=== PATIENT | male | born 1950 | race Hispanic/Latino ===

== ENCOUNTER 2020-06-10 13:30 | Emergency (ER) | payer MEDICARE, OTHER ==
[~2020-06-10 13:30] MED LIST: ESOM40CA PO; HYDR-4068 PO
[2020-06-10] MEDS ORDERED: ONDANSETRON 4MG INJ ONE (13:43)
[2020-06-10] MEDS ORDERED: KETOROLAC 30MG VIAL (30MG/ML) ONE (13:44)
[2020-06-10] MEDS ORDERED: 0.9%NACL 1000ML 1,000 ML IV ONE (13:45)
[2020-06-10 14:04] LABS: BASOPHILS % (AUTO) 0.8 % (0.0-5.0); HEMATOCRIT 44.9 % (42-54); MEAN CORPUSCULAR HGB CONC 33.6 g/dL (32.0-36.0); MEAN CORPUSCULAR VOLUME 92.2 fL (79-99); NEUTROPHILS % (AUTO) 54.8 % (40.0-77.0); PLATELET COUNT (AUTO) 207 K/uL (130-400); RED BLOOD CELL COUNT(AUTO) 4.87 MIL/uL (4.50-6.20); RED CELL DISTRIBUTION WIDTH 12.9 % (11.0-15.5); WHITE BLOOD COUNT (AUTO) 8.4 K/uL (4.8-10.8)
[2020-06-10 14:13] LABS: APPEARANCE,URINE Cloudy (CLEAR); BILIRUBIN,URINE Negative (NEGATIVE); COLOR,URINE Dark Yellow (YELLOW); GLUCOSE, URINE (UA) Negative (NEGATIVE); KETONES,URINE Trace mg/dL (NEGATIVE); LEUKOCYTE ESTERASE ,URINE Small (NEGATIVE); NITRATE,URINE Negative (NEGATIVE); OCCULT BLOOD,URINE Large (NEGATIVE); PROTEIN,URINE POS 1+ mg/dL (NEGATIVE)
[2020-06-10 14:17] LABS: ALANINE AMINOTRANSFERASE 26 U/L (12-78); ALBUMIN 4.1 g/dL (3.5-5.0); ASPARTATE AMINOTRANSFERASE 20 U/L (10-37); BILIRUBIN,TOTAL 0.7 mg/dL (0.2-1.0); CARBON DIOXIDE 30 mmol/L (21-32); CHLORIDE 106 mmol/L (101-111); GLOMERULAR FILTR. RATE CALC 79 mL/min (>60); GLUCOSE,RANDOM 117 mg/dL (70-105); POTASSIUM 3.8 mmol/L (3.5-5.1); SODIUM SERUM 143 mmol/L (136-145); TOTAL PROTEIN, SERUM 7.5 g/dL (6.0-8.3); UREA NITROGEN, BLOOD 14 mg/dL (7-18)
[2020-06-10 14:25] LABS: LIPASE < 50 U/L (114-286)
[2020-06-10 14:32] LABS: BACTERIA,URINE Moderate /HPF (None Seen); MUCUS,URINE Few LPF (None Seen); RBC,URINE >100 /HPF (0-1); SQUAMOUS EPITHELIAL CELL,UR 0-2 /HPF (0-2)
[2020-06-10] MEDS ORDERED: TAMSULOSIN HCL 0.4 MG CAP.ER.24H ONE (14:35)
== END 2020-06-10 15:29 | disposition home or self-care (01) ==
LOC: EDH 13:30
DX: N20.0 Calculus of kidney (principal); R31.9 Hematuria, unspecified; Z86.73 Personal history of transient ischemic attack (TIA), and cerebral infarction without residual deficits
CPT/HCPCS: 36415; 74176; 80053; 81001; 83690; 84484; 85025; 87088; 96361; 96374; 96375; 99284; J1885; J2405; J7030

== ENCOUNTER → 2023-06-11 | Outpatient (CLI) | payer OTHER | END | disposition home or self-care (01) | LOC: OIH 14:32 | PROVIDERS: ATTEND Internal Medicine Cardiovascular Disease | DX: Z13.6 Encounter for screening for cardiovascular disorders (principal) | CPT/HCPCS: 75571 ==

== ENCOUNTER → 2023-06-28 | Outpatient (CLI) | payer MEDICARE, OTHER | END | disposition home or self-care (01) | LOC: SHCH 10:03 | PROVIDERS: ATTEND Internal Medicine Cardiovascular Disease | DX: I65.23 Occlusion and stenosis of bilateral carotid arteries (principal); R09.89 Other specified symptoms and signs involving the circulatory and respiratory systems | CPT/HCPCS: 93880 ==

== ENCOUNTER 2023-07-17 06:49 | Day surgery (SDC) | payer MEDICARE, OTHER ==
[2023-07-15 10:31] VITALS: BP 120/61; PULSE 69; RESP 16
[2023-07-15 10:34] LABS: APPEARANCE,URINE CLEAR (CLEAR); BILIRUBIN,URINE NEGATIVE (NEGATIVE); COLOR,URINE YELLOW (YELLOW); GLUCOSE, URINE (UA) NEGATIVE (NEGATIVE); KETONES,URINE NEGATIVE (NEGATIVE); LEUKOCYTE ESTERASE ,URINE NEGATIVE Leu/uL (NEGATIVE); NITRATE,URINE NEGATIVE (NEGATIVE); OCCULT BLOOD,URINE NEGATIVE (NEGATIVE); PROTEIN,URINE NEGATIVE (NEGATIVE); UROBILINOGEN,URINE 0.2 mg/dL (0.2-1.0)
[2023-07-15 10:34] LABS: BASOPHILS # (AUTO) 0.05 K/uL (0.00-0.20); BASOPHILS % (AUTO) 0.7 % (0.0-5.0); EOSINOPHILS # (AUTO) 0.05 K/uL (0.00-0.70); EOSINOPHILS % (AUTO) 0.7 % (0.0-8.0); HEMATOCRIT 40.5 % (42-54); IMMATURE GRANULOCYTE ABSOLUTE 0.01 K/uL (0-1); LYMPHOCYTES # (AUTO) 1.7 K/uL (1.0-4.8); LYMPHOCYTES % (AUTO) 23.5 % (21.0-51.0); MEAN CORPUSCULAR HEMOGLOBIN 30.7 pg (27.0-33.0); MEAN CORPUSCULAR HGB CONC 33.3 g/dL (32.0-36.0); MONOCYTES # (AUTO) 0.6 K/uL (0.1-1.0); MONOCYTES % (AUTO) 8.8 % (3.0-13.0); NEUTROPHILS # (AUTO) 4.7 K/uL (1.8-7.7); NEUTROPHILS % (AUTO) 66.2 % (40.0-77.0); PLATELET COUNT (AUTO) 178 K/uL (130-400); RED CELL DISTRIBUTION WIDTH 12.7 % (11.0-15.5); WHITE BLOOD COUNT (AUTO) 7.1 K/uL (4.8-10.8)
[2023-07-15 10:37] LABS: ADD UA MICROSCOPIC NO
[2023-07-15 10:42] LABS: INR 0.97 (0.85-1.15); PROTHROMBIN TIME 11.5 SEC (9.6-11.6)
[2023-07-15 10:43] LABS: PARTIAL THROMBOPLASTIN TIME 27.4 SEC (26.3-35.5)
[2023-07-15 10:44] LABS: POTASSIUM 4.6 mmol/L (3.5-5.1)
[2023-07-15 10:52] LABS: B-TYPE NATRIURETIC PEPTIDE 97 pg/mL (0-100)
[2023-07-17] VITALS (10 sets, daily range): BP systolic 116–142; BP diastolic 52–108; PULSE 72–92; RESP 9–20
[~2023-07-17] VITALS: Ht 172.7 cm; Wt 71.4 kg
[~2023-07-17 06:49] MED LIST changes: +AEC81 PO; +CLOP75TA32 PO; -ESOM40CA PO; +EZET10TA48 PO; +LISI20TA24 PO; +MELO-108 PO; +METF-444 PO; +RABE20TA30 PO; +ROPI0.2535 PO
[2023-07-17] MEDS: 0.9%NACL 1000ML 1,000 ML IV ONE (07:33)
[2023-07-17] MEDS ORDERED: IOHEXOL 350 MG/ML 100ML INFUS..BTL IV ONE (09:27)
[2023-07-17] MEDS ORDERED: LIDOCAINE HCL 400MG/20ML VIAL ONE (09:27)
[2023-07-17] MEDS ORDERED: MEPERIDINE-PF 25 MG/ML SYG ONE ×2 (09:27→10:15)
[2023-07-17] MEDS ORDERED: MIDAZOLAM HCL 1 MG/ML 2ML VIAL ONE ×2 (09:27→10:15)
[2023-07-17] MEDS ORDERED: IOHEXOL-350 50ML VIAL IV ONE (09:27)
[2023-07-17] MEDS ORDERED: HEPARIN 10,000 UNIT/10ML (1,000 UNIT/ML) VIAL ONE (09:27)
[2023-07-17] MEDS ORDERED: SODIUM BICARB 50MEQ 50ML VIAL 50 ML ONE (09:27)
[2023-07-17] MEDS ORDERED: NITROGLYCERIN 50MG VIAL ONE (09:29)
[2023-07-17] MEDS ORDERED: NICARDIPINE 25MG INJ IV ONE (10:04)
[2023-07-17] MEDS: 0.9%NACL 1000ML 1,000 ML IV SCH (10:48)
[2023-07-17] MEDS ORDERED: DEXTROSE 50%-WATER 50 ML DISP.SYRIN IV PRN (11:00)
[2023-07-17] MEDS ORDERED: INSULIN HUMULIN R 100 UNIT/ML 3ML SQ SCH (11:30)
== END 2023-07-17 15:00 | disposition home or self-care (01) ==
LOC: DAH 06:49
PROVIDERS: ATTEND Internal Medicine Cardiovascular Disease
DX: R93.1 Abnormal findings on diagnostic imaging of heart and coronary circulation (principal); I25.10 Atherosclerotic heart disease of native coronary artery without angina pectoris; I10 Essential (primary) hypertension; E78.5 Hyperlipidemia, unspecified; E11.9 Type 2 diabetes mellitus without complications; M19.90 Unspecified osteoarthritis, unspecified site; I48.0 Paroxysmal atrial fibrillation; K21.9 Gastro-esophageal reflux disease without esophagitis; M79.10 Myalgia, unspecified site; Z86.73 Personal history of transient ischemic attack (TIA), and cerebral infarction without residual deficits; Z82.49 Family history of ischemic heart disease and other diseases of the circulatory system; Z83.3 Family history of diabetes mellitus; Z82.3 Family history of stroke; Z87.891 Personal history of nicotine dependence; Z79.84 Long term (current) use of oral hypoglycemic drugs; Z79.899 Other long term (current) drug therapy
CPT/HCPCS: 80048; 83880; 85025; 85610; 85730; 81003; 36415; 71045; 93005; 93458; 82948; 93306; 93356; C1769; A4649; C1894; Q9965; J3490 ×4; J7030; J1644 ×2; J2250 ×2; J2175 ×2; Q9967; A4215; A4222; A4221; A4663; A4216; A4606; A4223 ×3; 99156; 99157

== ENCOUNTER 2023-08-29 12:11 | Emergency (ER) | payer MEDICARE, OTHER ==
[~2023-08-29] VITALS: Ht 172.7 cm; Wt 68.0 kg
[~2023-08-29 12:11] MED LIST changes: -CLOP75TA32 PO; +METO50TA9 PO
[2023-08-29] MEDS ORDERED: METOCLOPRAMIDE 10 MG/2 ML VIAL IVP ONE (13:00)
[2023-08-29] MEDS ORDERED: ONDANSETRON 4MG INJ IVP ONE (13:00)
[2023-08-29] MEDS ORDERED: MORPHINE 2 MG SYG IVP ONE (13:00)
[2023-08-29] MEDS ORDERED: 0.9%NACL 1000ML 1,000 ML IV ONE (13:00)
[2023-08-29] MEDS: LACTULOSE 20 GM/30 ML UDCUP PO ONE (13:14)
[2023-08-29] MEDS: BISACODYL 10 MG SUPP.RECT RC ONE (13:15)
[2023-08-29 13:54] VITALS: BP 146/73; PULSE 87; RESP 18; O2SAT 98
== END 2023-08-29 14:23 | disposition home or self-care (01) ==
LOC: EDH 12:11
DX: K59.03 Drug induced constipation (principal); T40.2X5A Adverse effect of other opioids, initial encounter; E11.9 Type 2 diabetes mellitus without complications; I11.9 Hypertensive heart disease without heart failure; E78.00 Pure hypercholesterolemia, unspecified; Z79.1 Long term (current) use of non-steroidal anti-inflammatories (NSAID); Z79.82 Long term (current) use of aspirin; Z79.84 Long term (current) use of oral hypoglycemic drugs; Z79.899 Other long term (current) drug therapy; Z86.73 Personal history of transient ischemic attack (TIA), and cerebral infarction without residual deficits; Z95.1 Presence of aortocoronary bypass graft; Y92.89 Other specified places as the place of occurrence of the external cause
CPT/HCPCS: 74018

== ENCOUNTER 2023-09-09 08:17 | Emergency (ER) | payer MEDICARE, OTHER ==
[~2023-09-09] VITALS: Ht 170.2 cm; Wt 67.1 kg
[2023-09-09] MEDS: MAGNESIUM CITRATE 296 ML SOLUTION PO ONE (10:04)
[2023-09-09] MEDS: GLYCERIN ADULT SUPP.RECT RC SCH (10:04)
[2023-09-09] MEDS ORDERED: POLY17PO4 PO (11:09)
[2023-09-09 11:39] VITALS: BP 154/88; PULSE 70; RESP 17; O2SAT 100
== END 2023-09-09 11:39 | disposition home or self-care (01) ==
LOC: EDH 08:17
DX: K59.03 Drug induced constipation (principal); I10 Essential (primary) hypertension; E11.9 Type 2 diabetes mellitus without complications; E78.00 Pure hypercholesterolemia, unspecified; Z79.82 Long term (current) use of aspirin; Z79.84 Long term (current) use of oral hypoglycemic drugs; Z79.899 Other long term (current) drug therapy; Z98.890 Other specified postprocedural states
CPT/HCPCS: 71045; 74021

== ENCOUNTER → 2024-05-27 | Outpatient (CLI) | payer OTHER ==
[~2024-05-27] MED LIST changes: +CLOP75TA32 PO; -EZET10TA48 PO; -HYDR-4068 PO; +ISOS30TA92 PO; -LISI20TA24 PO; +METO-409 PO; -METO50TA9 PO; +REGADENOSON 0.4 MG/5 ML PF SYG IVP ONE; -ROPI0.2535 PO; +ROSU10TA72 PO
[2024-05-27] MEDS: REGADENOSON 0.4 MG/5 ML PF SYG IVP ONE (15:12)
--- NOTE | 2024-05-31 07:28 | HMCSR ---
APPROVED REPORT Height: 5 ft 8in Weight: 158 lbs TEST INDICATIONS CAD The imaging protocol used to acquire images was Rest Tc-99m/stress Tc-99m 1 day Consent: The procedure was explained and understood by the patient. Informerd consent was witnessed Diego Stephens RN First, low dose rest was performed then high dose stress. RESTING DATA: The resting ekg shows: NSR Rest SPECT myocardial perfusion imaging was performed in supine position 65 minutes following the int ravenous injection of 10.4 mCi of Tc-99 Sestamibi. Time of rest injection: 08:55: Date: 05/27/2024 Time of rest imagin:00: Date: 05/27/2024 PHARMACOLOGIC STRESS: Pharmacologic stress test was performed by injecting regadenoson 0.4 mg IV push followed by the intra venous injection of 32.7 mCi of Tc-99 Sestamibi. Time of stress injection: 10:47: Date: 05/27/2024 Time of stress imagin:58: Date: 05/27/2024 Heart Rate at time of stress injection: 73 bpm. Gated Stress SPECT was performed 239 minutes after stress injection. The images were gated to evaluate regional wall motion and calculate left ventricular ejection fracti on. STRESS DETAILS Reason for Termination: Infusion complete Stress Symptoms: Headache Max HR Achieved: 100 bpm % of APMHR Achieved: 68 Max Blood Pressure: 167/85 mmHg Stress ECG: NSR LEFT VENTRICLE Size: The left ventricular size is normal. Systolic Function:The left ventricular systolic function is mildly decreased. Wall Motion: Apical hypokinesis. The left ventricular ejection fraction was calculated to be 54%.TID = . LV PERFUSION Fixed apical defect. Fixed inferior wall thinning. Reversible anterior wall defect. Conclusion The left ventricular size is normal. The left ventricular systolic function is mildly decreased. Apical hypokinesis. Fixed apical defect. Fixed inferior wall thinning. Reversible anterior wall defect. The left ventricular ejection fraction was calculated to be 54%.
== END | disposition home or self-care (01) ==
LOC: SHCH 08:22
PROVIDERS: ATTEND Internal Medicine Cardiovascular Disease
DX: I25.10 Atherosclerotic heart disease of native coronary artery without angina pectoris (principal)
CPT/HCPCS: 78452; 93017; A9500 ×2; J2785 ×2

== ENCOUNTER 2024-08-24 12:03 | Emergency (ER) | payer OTHER, MEDICARE ==
[~2024-08-24] VITALS: Ht 172.7 cm; Wt 68.0 kg
[~2024-08-24 12:03] MED LIST changes: +HYDR-4068 PO; -MELO-108 PO; -RABE20TA30 PO; +RABE20TA31 PO; -REGADENOSON 0.4 MG/5 ML PF SYG IVP ONE; -ROSU10TA72 PO; +ROSUVASTATIN PO
--- NOTE | 2024-08-24 12:10 | ERN ---
ED Note History of Present Illness Stated Complaint: REFFERED BY / PB SAMUEL ON RT ANKLE Chief Complaint: Lower Extremity Pain/Injury Time Seen by MD: 12:04 Dictation: PATIENT IS A 73-YEAR-OLD MALE COMING IN FROM HIS PRIMARY CARE DOCTOR'S OFFICE WITH COMPLAINTS OF PAIN MILD SWELLING TO THE POSTERIOR LEFT CALF HE HAS HAD FOR SEVERAL DAYS NO FEVER NO CHILLS NO SHORTNESS A BREATH. NO NAUSEA VOMITING NO TRAUMA. NO HISTORY OF CHF. DISTAL NEUROVASCULAR CMS INTACT TO LEFT LEG Allergies: Coded Allergies: No Known Drug Allergies (Unverified Allergy, Unknown, 12/22/14) Home Meds Active Scripts Isosorbide Mononitrate (Isosorbide Mononitrate ER) 30 Mg Tab.er.24h, 1 TAB PO DAILY for 30 Days, #90 TAB 1 Refill Prov:MARIN MARTINEZP 05/01/24 Metoprolol Succinate (Metoprolol Succinate) 100 Mg Tab.er.24h, 1 TAB PO BID for 30 Days, #30 TAB 0 Refills Prov:MARIN MARTINEZP 05/01/24 Reported Medications Hydrocodone/Acetaminophen (Hydrocodon-Acetaminophn 10-325) 10 Mg-325 Mg Tablet, 1 EACH PO AD PRN for RESTLESS LEGS, TAB 07/21/24 [Rosuvastatin] No Conflict Check, 20 MG PO HS 07/21/24 Clopidogrel Bisulfate (Clopidogrel) 75 Mg Tablet, 75 MG PO DAILY, TAB 04/23/24 Rabeprazole Sodium (Rabeprazole Sodium) 20 Mg Tablet.dr, 20 MG PO DAILY, TAB 07/16/23 Aspirin (ASPIRIN 81 MG ECTAB) 81 Mg Ectab, 81 MG PO DAILY, TAB.EC 07/16/23 Metformin HCl (Metformin HCl) 500 Mg Tablet, 500 MG PO DAILY, TAB 07/16/23 Past Medical History Past Medical History: Diabetes-Type II, High Cholesterol, Heart Disease, Hypertension, Other Additional Past Medical Hx: BLADDER INFECTIONS Surgical History: CABG, Other Surgical History Other: CARDIAC STENTS RN Note Reviewed/Agreed w/PFSH: Yes Review of System Dictation CONSTITUTIONAL: NEGATIVE EXCEPT FOR HPI HEAD/FACE: NEGATIVE EXCEPT FOR HPI EENT: NEGATIVE EXCEPT FOR HPI RESPIRATORY: NEGATIVE EXCEPT FOR HPI GASTROINTESTINAL/ABDOMINAL: NEGATIVE EXCEPT FOR HPI GENITOURINARY: NEGATIVE EXCEPT FOR HPI MUSCULOSKELETAL: NEGATIVE EXCEPT FOR HPI LEFT POSTERIOR CALF SWELLING TENDERNESS INTEGUMENTARY: NEGATIVE EXCEPT FOR HPI NEUROLOGICAL/PSYCH: NEGATIVE EXCEPT FOR HPI HEMATOLOGIC/LYMPHATIC: NEGATIVE EXCEPT FOR HPI ALL SYSTEMS NEGATIVE, EXCEPT NOTED ABOVE. 13 POINT REVIEW OF SYSTEMS ASSESSED AND ALL NEGATIVE EXCEPT FOR ABOVE. Initial Vital Sign VS Vital Signs Date Time Temp Pulse Resp B/P (MAP) Pulse Ox O2 Delivery O2 Flow Rate FiO2 08/24/24 12:06 98.1 71 18 15/73 98 Room Air 0 Physical Exam Dictation VITAL SIGNS REVIEWED GENERAL APPEARANCE: ALERT, ORIENTED X 3, NO ACUTE DISTRESS, WELL DEVELOPED, NOURISHED. 0/10 PAIN HEAD AND FACE: NON-TRAUMATIC. EYES: PERRL, PINK CONJUNCTIVAS, EYELID NO TRAUMA, ANTERIOR CHAMBER WITH ARCUS SENILIS. EARS: PINNAS INTACT AND NO SIGNS OF TRAUMA OR ERYTHEMA EAR CANALS CLEAR AND NO DISCHARGE TM NO ERYTHEMA NOSE: NO DISCHARGE, NO BLEEDING. OROPHARYNX: MOUTH NORMAL, TONGUE PINK, PHARYNX CLEAR,NO ERYTHEMA, TONSILS NO EXUDATES, NO ABSCESSES NOTED, MUCOUS MEMBRANE MOIST NECK: SUPPLE, NON-TENDER, NO THYROMEGALY, NO MASSES, NO JVD, NO BRUITS BREAST:DEFERRED CHEST:NO TENDERNESS, NO CREPITUS, NO PARADOXICAL MOVEMENT, NO RETRACTIONS LUNGS:CLEAR, WELL-VENTILATED, SYMMETRIC, NO RALES, NO WHEEZING, NO RHONCHI, NO STRIDOR, GOOD BREATH SOUNDS BILATERALLY HEART: REGULAR RATE, REGULAR RHYTHM, NO MURMUR, NO GALLOPS VASCULAR: NO PERIPHERAL EDEMA, ABDOMEN: SOFT, POSITIVE BOWEL SOUNDS, NONDISTENDED, NO GUARDING, NONTENDER, NO REBOUND, NO MASSES NO HEPATOMEGALY, NO SPLENOMEGALY, NO 'S SIGN, NO HERNIAS. RECTAL: DEFERRED GENITAL: DEFERRED NEUROLOGICAL: NORMAL SPEECH, MOTOR FUNCTION INTACT, SENSORY FUNCTION INTACT MUSCULOSKELETAL: NECK NONTENDER, FULL RANGE OF MOTION, BACK NONTENDER, FULL RANGE OF MOTION, EXTREMITIES MILD POSTERIOR LEFT CALF SWELLING TENDERNESS., FULL RANGE OF MOTION NO ERYTHEMA DISTAL NEUROVASCULAR CMS INTACT. SKIN: COLOR PINK, DRY, NO TURGOR, NO RASH, NO LACERATIONS, NO ABRASIONS, NO CONTUSIONS. LYMPHATIC: DEFERRED Results (Laboratory/Radiology) Laboratory/Radiology Laboratory Tests Test 08/24/24 12:21 White Blood Count 7.4 K/uL (4.8-10.8) Red Blood Count 4.21 MIL/uL (4.50-6.20) L Hemoglobin 12.1 g/dL (14.0-18.0) L Hematocrit 38.2 % (42-54) L Mean Corpuscular Volume 90.7 fL (79-99) Mean Corpuscular Hemoglobin 28.7 pg (27.0-33.0) Mean Corpuscular Hemoglobin Concent 31.7 g/dL (32.0-36.0) L Red Cell Distribution Width 14.4 % (11.0-15.5) Platelet Count 198 K/uL (130-400) Mean Platelet Volume 10.7 fL (7.5-10.5) H Immature Granulocyte % (Auto) 0.4 % (0-1) Neutrophils (%) (Auto) 64.4 % (40.0-77.0) Lymphocytes (%) (Auto) 21.6 % (21.0-51.0) Monocytes (%) (Auto) 9.9 % (3.0-13.0) Eosinophils (%) (Auto) 3.0 % (0.0-8.0) Basophils (%) (Auto) 0.7 % (0.0-5.0) Neutrophils # (Auto) 4.8 K/uL (1.8-7.7) Lymphocytes # (Auto) 1.6 K/uL (1.0-4.8) Monocytes # (Auto) 0.7 K/uL (0.1-1.0) Eosinophils # (Auto) 0.22 K/uL (0.00-0.70) Basophils # (Auto) 0.05 K/uL (0.00-0.20) Absolute Immature Granulocyte (auto 0.03 K/uL (0-1) Nucleated Red Blood Cells 0.0 % (0.0-0.19) Sodium Level 138 mmol/L (136-145) Potassium Level 4.6 mmol/L (3.5-5.1) Chloride Level 103 mmol/L (101-111) Carbon Dioxide Level 30 mmol/L (21-32) Blood Urea Nitrogen 23 mg/dL (7-18) H Creatinine 0.8 mg/dL (0.5-1.3) Glomerular Filtration Rate Calc 93 mL/min (>90) Random Glucose 97 mg/dL (70-105) Total Calcium 9.5 mg/dL (8.5-10.1) 1333/ULTRASOUND DOPPLER LEFT LEG NEGATIVE FOR DVT Labs Reviewed?: Yes ED Course ED Course Orders Procedure Category Date Status Time Us Venous Doppler US 08/24/24 Resulted Unilateral 12: Cbc With Differential LAB 08/24/24 Complete 12:07 Basic Metabolic Panel LAB 08/24/24 Complete 12: Vital Signs Date Time Temp Pulse Resp B/P (MAP) Pulse Ox O2 Delivery O2 Flow Rate FiO2 08/24/24 12:06 98.1 71 18 15/73 98 Room Air 0 Medical Decision Making [facility] MEDICAL DISCHARGE MAKING BASED ON BASIC LABS AND ULTRASOUND DOPPLER LEFT LEG TO RULE OUT DVT. LABS UNREMARKABLE ULTRASOUND DOPPLER NEGATIVE PATIENT WAS HAVING SOME MUSCLE PAIN WITH TRANSDUCER. DISCHARGED HOME TO FOLLOW UP WITH HIS PRIMARY CARE DOCTOR DX & DISP Disposition: Discharge Departure Impression: Primary Impression: Left leg pain Condition: Stable Additional Instructions: FOLLOW-UP WITH PRIMARY CARE PROVIDER IN 1 TO 2 DAYS. TAKE MEDICATIONS DIRECTED HERE IN THE EMERGENCY ROOM. OKAY TO CONTINUE HOME MEDICATIONS UNLESS OTHERWISE DISCUSSED DURING YOUR VISIT IN THE EMERGENCY ROOM TODAY. RETURN TO YOUR NEAREST EMERGENCY ROOM IF SYMPTOMS WORSEN OR IF THERE IS NO IMPROVEMENT. CALL 911 IF YOU NEED IMMEDIATE ASSISTANCE. TAKE TYLENOL OR MOTRIN [id number] NEEDED AND IF NO CONTRAINDICATIONS ARE PRESENT. INCREASE ORAL HYDRATION. A WOUND CULTURE OR URINE CULTURE WAS ORDERED HERE IN THE EMERGENCY ROOM DEPARTMENT PLEASE FOLLOW-UP WITH PRIMARY CARE PROVIDER AND ADVISE THEM TO GET REPEAT PORTS FROM OUR FACILITY. IF YOU HAD ANY JASON WRAP/SPLINTS THAT WERE APPLIED HERE, PLEASE DO NOT REMOVE THEM UNTIL YOU SEE YOUR PRIMARY CARE OR SPECIALTY. TYLENOL OR MOTRIN [id number] NEEDED FOR PAIN. FOLLOW UP WITH YOUR PRIMARY CARE DOCTOR NEEDED. DIET AND ACTIVITY TOLERATED. Referrals: SELF,REFERRAL (PCP) Time of Disposition: 13:38 I have reviewed the case, and I agree with, Diagnosis and Plan DAQUAN LUIS NP Aug 24, 2024 12:10
[2024-08-24 12:25] LABS: BASOPHILS # (AUTO) 0.05 K/uL (0.00-0.20); BASOPHILS % (AUTO) 0.7 % (0.0-5.0); EOSINOPHILS # (AUTO) 0.22 K/uL (0.00-0.70); HEMATOCRIT 38.2 % (42-54); IMMATURE GRANULOCYTE ABSOLUTE 0.03 K/uL (0-1); LYMPHOCYTES # (AUTO) 1.6 K/uL (1.0-4.8); LYMPHOCYTES % (AUTO) 21.6 % (21.0-51.0); MEAN CORPUSCULAR HEMOGLOBIN 28.7 pg (27.0-33.0); MEAN CORPUSCULAR HGB CONC 31.7 g/dL (32.0-36.0); MEAN CORPUSCULAR VOLUME 90.7 fL (79-99); MONOCYTES # (AUTO) 0.7 K/uL (0.1-1.0); MONOCYTES % (AUTO) 9.9 % (3.0-13.0); NEUTROPHILS # (AUTO) 4.8 K/uL (1.8-7.7); NEUTROPHILS % (AUTO) 64.4 % (40.0-77.0); PLATELET COUNT (AUTO) 198 K/uL (130-400); RED BLOOD CELL COUNT(AUTO) 4.21 MIL/uL (4.50-6.20); RED CELL DISTRIBUTION WIDTH 14.4 % (11.0-15.5); WHITE BLOOD COUNT (AUTO) 7.4 K/uL (4.8-10.8)
[2024-08-24 12:33] LABS: CREATININE 0.8 mg/dL (0.5-1.3); POTASSIUM 4.6 mmol/L (3.5-5.1)
--- NOTE | 2024-08-24 13:35 | HMCIMG ---
US VENOUS DOPPLER UNILATERAL REASON: LEFT POSTERIOR CALF SWELLING TENDERNESS COMPARISON: None Technique: Left venous doppler ultrasound was performed with spectral analysis and color flow imaging technique. FINDINGS: There is a normal appearance of the common femoral, deep femoral, the profunda femoris and popliteal veins. Proximal calf veins appear normal as well. There is normal response to compression and augmentation. There is no evidence of deep venous thrombosis. IMPRESSION: Normal left lower extremity venous Doppler ultrasound.
[2024-08-24 13:55] VITALS: BP 132/69; PULSE 79; RESP 18; TEMP 97.3; O2SAT 81
== END 2024-08-24 13:56 | disposition home or self-care (01) ==
LOC: EDH 12:03
DX: M79.605 Pain in left leg (principal); E11.9 Type 2 diabetes mellitus without complications; E78.00 Pure hypercholesterolemia, unspecified; I10 Essential (primary) hypertension; Z79.02 Long term (current) use of antithrombotics/antiplatelets; Z79.82 Long term (current) use of aspirin; Z79.84 Long term (current) use of oral hypoglycemic drugs; Z79.899 Other long term (current) drug therapy; Z95.1 Presence of aortocoronary bypass graft; Z95.5 Presence of coronary angioplasty implant and graft
CPT/HCPCS: 36415; 80048; 85025; 93971; 99284